=== PATIENT | male | born 1985 | race Caucasian/White ===

== ENCOUNTER 2018-09-20 06:08 | Day surgery (SDC) | payer OTHER ==
[2018-09-20] MEDS ORDERED: ceFAZolin 2 GM/50 ML 2 GM/50 ML BAG IV ONE (06:38)
--- NOTE | 2018-09-20 06:59 | ANESTHESIA ---
Pre-Anesthesia VS, & Labs - Diagnosis R inguinal hernia - Procedure R open inguinal hernia repair Vital Signs: Temp Pulse Resp BP Pulse Ox 36.2 C L 66 16 130/91 H 98 09/20/18 06:30 09/20/18 06:30 09/20/18 06:30 09/20/18 06:30 09/20/18 06:30 Last Vital Signs Temp 36.2 C L 09/20/18 06:30 Pulse 66 09/20/18 06:30 Resp 16 09/20/18 06:30 BP 130/91 H 09/20/18 06:30 Pulse Ox 98 09/20/18 06:30 Height 6 ft Weight (kg) 109.9 kg Height 6 ft Weight (kg) 109.9 kg - NPO >8 hours Home Medications and Allergies Home Medications: Ambulatory Orders Acetaminophen [Tylenol] 650 mg PO Q4HR PRN 09/13/18 Ibuprofen [Advil] 200 mg PO Q6H PRN 09/13/18 Acetaminophen [Tylenol] 650 mg PO Q4HR PRN 09/13/18 Ibuprofen [Advil] 200 mg PO Q6H PRN 09/13/18 Allergies/Adverse Reactions: Allergies Allergy/AdvReac Type Severity Reaction Status Date / Time No Known Drug Allergies Allergy Verified 09/13/18 14:36 Anes History & Medical History - Anesthetic History Anesthesia Complications: reports: No previous complications Family history of Anesthesia Complications: Denies Family history of Malignant Hyperthermia: Denies - Medical History Cardiovascular: reports: None Pulmonary: reports: None Gastrointestinal: reports: None Urinary: reports: None Musculoskeletal: reports: None Endocrine/Autoimmune: reports: None Skin: reports: Eczema Psychosocial: reports: Alcohol - Surgical History Eyes Ears Nose Throat (EENT): Other (wisdom teeth extraction) Exam General: Alert, Oriented x3, Cooperative Dental: WNL Mouth Openin Fingerbreadth Neck Mobility: Normal Mallampati classification: II Thyromental Distance: 4-6 cm Respiratory: Lungs clear, Normal breath sounds Cardiovascular: Regular rate Neurological: Normal speech Mental/Cognitive Status: Alert/Oriented X3 Cognitive Status: Within normal limits Plan Anesthesia Type: General Consent for Procedure(s) Verified and Reviewed: Yes Code Status: Attempt Resuscitation ASA classification: 2-Mild systemic disease Is this case an emergency?: No
[2018-09-20] MEDS ORDERED: LACTATED RINGERS 1,000 ML IV ONE ×2 (07:13→08:34)
[2018-09-20] MEDS ORDERED: ceFAZolin 1 GM VIAL ONE (07:18)
[2018-09-20] MEDS ORDERED: LIDOCAINE-MPF 1% 30 ML VIAL ONE (07:18)
[2018-09-20] MEDS ORDERED: BUPIVACAINE 0.5%-EPI 1:200000 PF 30 ML VIAL ONE (07:19)
[2018-09-20] MEDS ORDERED: BUPIVACAINE 0.5% PF 30 ML VIAL INFIL ONE ×2 (07:49)
[2018-09-20] MEDS ORDERED: DEXAMETHASONE 4 MG/ML VIAL IVP ONE (08:00)
[2018-09-20] MEDS ORDERED: GLYCOPYRROLATE 1 MG/5 ML VIAL IVP ONE (08:00)
[2018-09-20] MEDS ORDERED: MIDAZOLAM 2 MG/2 ML VIAL IVP ONE (08:00)
[2018-09-20] MEDS ORDERED: KETOROLAC 30 MG/ML VIAL IVP ONE (08:00)
[2018-09-20] MEDS ORDERED: LIDOCAINE-MPF 2% 5 ML VIAL IM ONE (08:00)
[2018-09-20] MEDS ORDERED: ONDANSETRON 4 MG/2 ML VIAL IVP ONE (08:00)
[2018-09-20] MEDS ORDERED: PROPOFOL 200 MG/20 ML VIAL IVP ONE (08:00)
[2018-09-20] MEDS ORDERED: ACETAMINOPHEN 325 MG TABLET PO PRN (09:00)
[2018-09-20] MEDS ORDERED: oxyCODONE 5 MG TABLET PO PRN (09:00)
[2018-09-20] MEDS ORDERED: IBUPROFEN 600 MG TABLET PO PRN (09:00)
[2018-09-20] MEDS ORDERED: ONDANSETRON 4 MG/2 ML VIAL IVP PRN (09:00)
[2018-09-20] MEDS ORDERED: fentaNYL 100 MCG/2 ML VIAL ONE (09:32)
--- NOTE | 2018-09-20 09:40 | OPERATIVE REPORT ---
DATE OF SERVICE: 09/20/2018 Physician: Javi Lal MD PREOPERATIVE DIAGNOSIS: Symptomatic right inguinal hernia. POSTOPERATIVE DIAGNOSIS: Symptomatic right inguinal hernia. PROCEDURE PERFORMED: Open repair of symptomatic right inguinal hernia with polypropylene mesh. ANESTHESIA: Local plus general by Rene Naik CRNA. SURGEON: Javi Lal MD. ESTIMATED BLOOD LOSS: 10 mL COMPLICATIONS: None. FINDINGS: A small indirect inguinal hernia was present and a small direct inguinal hernia was presen t. There was no evidence of femoral hernia. A Bard mesh PerFix expanded polypropylene mesh was used for the reconstruction. INDICATIONS: Patient is a 33-year-old gentleman with a recent onset of a painful right groin bulge. Evaluation revealed a reducible right inguinal hernia. He was advised to undergo repair via a tradi tional open technique. TECHNIQUE: After informed consent, patient was taken to the operating room where he was placed under general endotracheal anesthesia. Preoperative preparation included application of sequential calf c ompression boots, administration of 2 grams of cefazolin intravenously within an hour of the incision . His right groin had been clipped in the ASU. It was prepped with iodoform solution, following whi ch a right groin block was instituted using a 50:50 combination of 1% lidocaine plain and 0.5% Marcai ne with epinephrine. A total of 50 mL of the mixture was used. The right groin was re-prepared with ChloraPrep solution and draped in the usual sterile fashion. A transverse incision was made in the skin lines of the right groin beginning above the pubic tubercle and extending laterally approximatel y 4-5 cm. Hemostasis was achieved with electrocautery, 2-0 Vicryl ties. Incision was carried down t hrough subcutaneous tissues until the external oblique aponeurosis was identified and was incised ivett ng the lines of its fibers in such a manner as to open the external ring and expose the internal ring . The spermatic cord was mobilized and encircled with a Manny drain. The ilioinguinal nerve was i dentified and was divided to avoid entrapment and neuralgia. The cord was dissected, isolating a sma ll cord lipoma, which was dissected to the level of the internal ring, where it was ligated with 2-0 Vicryl, amputated and discarded. A small indirect sac was similarly identified and the cord structur es dissected proximally to the level of the internal ring. It was opened and a finger inserted in th e peritoneal cavity. A search for femoral and direct hernias was made. There was no evidence of fem oral hernia, but a small direct defect was identified. The indirect hernia sac was twisted and highl y ligated with a 3-0 silk suture ligature. Excess hernia sac was amputated and discarded. The small direct defect was repaired primarily with continuous 0 Ethibond suture, following which, after hemos tasis was ensured, the wound was irrigated with antibiotic solution containing a gram of cefazolin pe r liter and a precut slotted expanded polypropylene mid weight mesh was soaked in antibiotic solution , placed over the inguinal floor and secured in place with continuous 3-0 nylon suture, securing it t o the shelving edge of Poupart ligament inferiorly and to the internal oblique aponeurosis superolate rally, and to the lateral border of the rectus sheath medially. Care was taken to avoid excessive ti ghtening of the patch around the cord to the level of the internal ring. After hemostasis was again ensured, the wound was then irrigated with antibiotic solution, following which wound closure was acc omplished in layers using continuous 2-0 Vicryl reapproximating the external oblique aponeurosis over lying the cord, followed by 3-0 Vicryl for Frank fascia and 4-0 Monocryl for subcuticular skin closu re, followed by Dermabond. Anesthesia was terminated and patient was transferred to the recovery [facility] in satisfactory condition. Sponge and needle counts were correct x2. No drains were used. TD: 09/20/2018 09:17
[2018-09-20 10:41] VITALS: BP 132/77
== END 2018-09-20 06:09 | disposition home or self-care (01) ==
LOC: SDS 06:08
PROVIDERS: ATTEND Internal Medicine Gastroenterology
PROC: 0VBF0ZZ Excision of Right Spermatic Cord, Open Approach (ICD-10-PCS; 2018-09-20)
PROC: 0YU50JZ Supplement Right Inguinal Region with Synthetic Substitute, Open Approach (ICD-10-PCS; principal; 2018-09-20 07:30)
DX: K40.90 Unilateral inguinal hernia, without obstruction or gangrene, not specified as recurrent (principal); D17.6 Benign lipomatous neoplasm of spermatic cord; E66.9 Obesity, unspecified; Z68.31 Body mass index [BMI] 31.0-31.9, adult
CPT/HCPCS: 49505; C1781; J0690; J7120